=== PATIENT | female | born 1955 | race Caucasian/White ===

== ENCOUNTER 2020-01-24 17:42 | Outpatient (CLI) | payer BC, SELFPAY ==
--- NOTE | ~2020-01-24 | MM_ITS ---
EXAMINATION: MM screening [facility] BI w arvind HISTORY: Screening TECHNIQUE: Craniocaudal and mediolateral oblique 3-D tomosynthesis images were obtained and synthetic 2-D images were generated. CAD analysis was submitted and interpreted. COMPARISON: Comparison to multiple prior studies sequentially, with oldest reviewed study dated 09/2014. BREAST PARENCHYMAL COMPOSITION: There are scattered areas of fibroglandular density. FINDINGS: There is no evidence of suspicious mass, calcification, or architectural distortion to sugg est malignancy in either breast. There has been no suspicious interval change. IMPRESSION: 1. No mammographic evidence of malignancy. 2. Recommend routine screening mammography in one year. BI-RADS Category 1: Negative Reviewed, dictated and finalized at location A.
== END 2020-01-24 17:43 | disposition home or self-care (01) ==
PROVIDERS: Visit Provider Obstetrics & Gynecology
DX: Z12.31 Encounter for screening mammogram for malignant neoplasm of breast (principal)
CPT/HCPCS: 77063; 77067

== ENCOUNTER → 2022-01-22 12:21 | Outpatient (CLI) | payer BC, SELFPAY ==
--- NOTE | ~2022-01-22 | MM_ITS ---
EXAMINATION: MM screening [facility] BI w arvind HISTORY: Screening TECHNIQUE: Craniocaudal and mediolateral oblique 3-D tomosynthesis images were obtained and synthetic 2-D images were generated. CAD analysis was submitted and interpreted. COMPARISON: Comparison to multiple prior studies sequentially, with oldest reviewed study dated 09/2014. BREAST PARENCHYMAL COMPOSITION: There are scattered areas of fibroglandular density. FINDINGS: There is no evidence of suspicious mass, calcification, or architectural distortion to sugg est malignancy in either breast. There has been no suspicious interval change. IMPRESSION: 1. No mammographic evidence of malignancy. 2. Recommend routine screening mammography in one year. BI-RADS Category 1: Negative Reviewed, dictated and finalized at location A.
== END ==
PROVIDERS: PCP Nurse Practitioner; Visit Provider Nurse Practitioner
DX: Z12.31 Encounter for screening mammogram for malignant neoplasm of breast (principal)
CPT/HCPCS: 77063; 77067

== ENCOUNTER → 2022-03-09 08:02 | Outpatient (CLI) | payer BC, SELFPAY ==
--- NOTE | ~2022-03-09 | DEXA_ITS ---
Bone Density Report Name: ZAIDA LEVY Age: 67 Sex: Female Ethnicity: White Date of : 1955 Indication: postmenopausal; screening for osteoporosis; prior fracture; hysterectomy; Referring Provider: Faizan, Sara Study: Bone densitometry was performed. Exam Date: March 09, 2022 Accession number: [id number] Bone Density: Region BMD T-score Z-score Classification AP Spine (L1-L4) 0.969 -0.7 1.1 Normal Femoral Neck (Left) 0.767 -0.7 0.8 Normal Total Hip (Left) 0.889 -0.4 0.8 Normal Femoral Neck (Right) 0.711 -1.2 0.3 Osteopenia Total Hip (Right) 0.829 -0.9 0.3 Normal Total Hip Mean 0.859 -0.7 0.6 Normal World Health Organization criteria for BMD impression classify patients as: Normal (T-score at or above -1.0), Osteopenia (T-score between -1.0 and -2.5), or Osteoporosis (T-score at or below -2.5). 10-year Fracture Risk(1): Major Osteoporotic Fracture 14% Hip Fracture 1.2% Reported Risk Factors: [place] (), Neck BMD=0.711, BMI=27.1, previous fracture (1) FRAX(R) Version 3.08. Fracture probability calculated for an untreated patient. Fracture probability may be lower if the patient has received treatment. Previous Exams: Region Exam Age BMD T-score BMD Change BMD Change Date g/cm2 vs Baseline vs Previous AP Spine(L1-L4) 03/09/2022 67 0.969 -0.7 0.020 0.020 11/03/2018 63 0.949 -0.9 Total Hip(Left) 03/09/2022 67 0.889 -0.4 -0.011 -0.011 11/03/2018 63 0.900 -0.3 Total Hip(Right) 03/09/2022 67 0.829 -0.9 0.001 0.001 11/03/2018 63 0.828 -0.9 *Denotes significance at 95% confidence level, LSC for AP Spine = 0.022 g/cm2, LSC for Total Hip = 0.027 g/cm2 Clinical Information Provided by Patient: Has had a low trauma fracture Has used the following medications: Vitamin D, Calcium, MTV Has the following medical conditions: Hysterectomy Patient maximum height was 66.0 Menopause Age: 48 Does not regularly consume dairy products Drinks caffeinated beverages Onset of menses at age 12 Number of children 0 Impression: The patient has low bone mass, based on the Right Femoral Neck T-score. The patient has an estimated ten-year risk of hip fracture of 1.2% and an estimated ten-year risk of major fracture of 14%, based on the WHO FRAX algorithm. The patient has risk factors, including: previous fracture. No significant bone loss was observed
== END ==
PROVIDERS: PCP Nurse Practitioner; Visit Provider Nurse Practitioner
DX: Z13.820 Encounter for screening for osteoporosis (principal); M85.851 Other specified disorders of bone density and structure, right thigh
CPT/HCPCS: 77080

== ENCOUNTER 2022-07-28 08:34 | Outpatient (CLI) | payer BC, SELFPAY ==
--- NOTE | ~2022-07-28 | XR_ITS ---
Clinical Indication: Pneumonia PA and lateral views of the chest: Comparison: None Findings: The lungs are clear, without evidence of focal consolidation or pleural effusion. Cardiome diastinal silhouette is within normal limits. Bones and soft tissues are unremarkable. Impression: Normal chest. Reviewed, dictated and finalized at [facility]. LE APPLICATION DEVELOPMENT LEAD Impression: Normal chest.
== END 2022-07-28 08:35 ==
LOC: MICIMG 08:37
DX: J18.9 Pneumonia, unspecified organism (principal)
CPT/HCPCS: 71046

== ENCOUNTER → 2023-03-15 14:01 | Outpatient (CLI) | payer BC, SELFPAY ==
--- NOTE | ~2023-03-15 | MM_ITS ---
EXAMINATION: MM screening [facility] BI w arvind HISTORY: Screening mammogram TECHNIQUE: Craniocaudal and mediolateral oblique 3-D tomosynthesis images were obtained and synthetic 2-D images were generated. CAD analysis was submitted and interpreted. COMPARISON: 01/22/2022, 2019 bilateral screening mammogram examinations BREAST PARENCHYMAL COMPOSITION: There are scattered areas of fibroglandular density. FINDINGS: There is no evidence of suspicious mass, calcification, or architectural distortion to sugg est malignancy in either breast. There has been no suspicious interval change. IMPRESSION: 1. No mammographic evidence of malignancy. 2. Recommend routine screening mammography in one year. BI-RADS Category 1: Negative Reviewed, dictated and finalized at location A.
== END ==
PROVIDERS: Visit Provider Nurse Practitioner
DX: Z12.31 Encounter for screening mammogram for malignant neoplasm of breast (principal)
CPT/HCPCS: 77063; 77067

== ENCOUNTER 2024-05-08 13:58 | Outpatient (CLI) | payer BC, SELFPAY ==
--- NOTE | ~2024-05-08 | MM_ITS ---
EXAMINATION: MM screening [facility] BI w arvind HISTORY: Screening mammogram TECHNIQUE: Craniocaudal and mediolateral oblique 3-D tomosynthesis images were obtained and synthetic 2-D images were generated. CAD analysis was submitted and interpreted. COMPARISON: 03/15/2023, 01/22/2022, 01/24/2020 BREAST PARENCHYMAL COMPOSITION:Not Dense. The breasts are almost entirely fatty FINDINGS: No suspicious mass, calcification, or architectural distortion are identified in either yajaira ast to suggest malignancy. There has been no suspicious interval change. IMPRESSION: No mammographic evidence of malignancy. Recommend routine screening mammography in one year. BI-RADS Category 1: Negative Reviewed, dictated and finalized at location . I/99
== END 2024-05-08 13:59 | disposition home or self-care (01) ==
LOC: MICIMG 14:00
PROVIDERS: Visit Provider Nurse Practitioner
DX: Z12.31 Encounter for screening mammogram for malignant neoplasm of breast (principal)
CPT/HCPCS: 77063; 77067

== ENCOUNTER 2024-11-02 17:25 | Emergency (ER) | payer BC, MEDICARE, SELFPAY ==
--- OUTSIDE RECORDS SUMMARY | 2024-11-02 17:29 | XMS_ITS | Clinical Summary ---
Author Organization [facility] Address [address] [place] [address] Phone Care Team Providers Care Molding Machine Tender Name Role Phone Mary Anne Stevens MD Primary Care Provider [phone] Allergies Active Allergy Reactions Criticality Noted Date Comments Neomycin Rash Low 08/01/2016 Medications calcium carbonate/tavon min D3 (CALTRATE 600 + D ORAL) Take 1 Tablet by mouth daily. Active MULTIVITAMIN ORAL Take 1 Tablet by mouth daily. Active estradioL (ESTRACE) 0.01% (0.1 mg/g) vaginal creamIndicatio ns:Atrophic vaginitis Insert 1 Gram vaginally see administration instructions. Use two times a week. 42.5 Gram 3 5 Active ergocalciferol (VITAMIN D2) 50,000 unit capsule Take 1 Capsule (50,000 Units) by mouth every 7 days. 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 06/30/2022 Encounters Date Type Department Care Team Description 09/05/2024 External Device Data [facility] ABSTRACTION Provider, Abstract 08/29/2024 External Device Data [facility] ABSTRACTION Provider, Abstract 08/28/2024 External Device Data [facility] ABSTRACTION Provider, Abstract 08/25/2024 External Device Data [facility] ABSTRACTION Provider, Abstract 08/25/2024 External Device Data [facility] ABSTRACTION Provider, Abstract 08/22/2024 External Device Data [facility] ABSTRACTION Provider, Abstract 08/22/2024 External Device Data [facility] ABSTRACTION Provider, Abstract 08/09/2024 1:17 PM DRAWING HAND - 08/09/2024 11:59 PM DRAWING HAND [facility] [address] [place] [address] Mary Anne Stevens MD Discharge Disposition: Home or Self Care 08/08/2024 External Device Data ST[facility] ABSTRACTION Provider, Abstract from Last 3 Months Immunizations Immunization Administration Dates Next Due (COMIRNATY)(12 YR UP) COVID- 19 VACCINE, MRNA, SPIKE PROTEIN, LNP, HUSAM(PF) 30 MCG/0.3 ML IM SUSP 03/27/2024 (PFIZER HUSAM)(5-11 YRS PRIMA RY SERIES) COVID-19 VACCINE - EMERGENCY USE AUTHORIZATION, MRNA, HUSAM(PF) 10 MCG/0.2 ML IM SUSP 04/01/2022,11/04/2021,03/24/2021 (PFIZER)(12 YR UP) COVID-19 VACCINE - EMERGENCY USE AUTHORIZATION, MRNA, [id number](PF) 30 MCG/0.3 ML IM SUSP 08/06/2020,07/13/2020 (PREVNAR 20)(6 WKS UP) PNEUM OCOCCAL CONJUGATE VACCINE 20-VALENT (PCV20), POLYSACCHARIDE [id number] CONJUGATE, ADJUVANT 0.5 ML (PF) IM 03/03/2022 (SHINGRIX)(50 YRS UP) ZOSTER VACCINE RECOMBINANT, 0.5 ML, IM 07/19/2024 Adacel Vaccine > 7 Yo IM 06/20/2016 INFLUENZA VACCINE INACTIVATE D ADJUV, (65 YR UP), 0.5ML (PF), IM 03/27/2024 Influenza Seasonal Unspecifi ed Formulation IM 03/03/2023,03/03/2022 Pneumococcal 7-valent conjugate vaccine IM 03/03 Zoster Vaccine Live SQ 08/24/2016 Family History Medical History Relation Name Comments Heart Disease Brother Benny Gonzalez Heart disease stents inserted in early 1999s. Heart Disease Father Hernando Gonzalez of heart disease in 2003 age 78. High Cholesterol Father Hernando Gonzalez No Known Problems Maternal Grandfather No Known Problems Maternal Grandmother Cancer Mother Rehana Gonzalez Pancreatic canc er. 1975 age 50 No Known Problems Paternal Grandfather No Known Problems Paternal Grandmother No Known Problems Sister Relation Name Status Comments Brother Benny Gonzalez Alive Father Hernando Gonzalez Maternal Grandfather Maternal Grandmother Mother Rehana Gonzalez Paternal Grandfather Paternal Grandmother Sister Alive Social History Tobacco Use Types Packs/Day Years Used Date Smoking Tobacco: Never Passive Smoke Exposure: Never Smokeless Tobacco: Never Tobacco Cessation:Counseling Given: No Alcohol Use Standard Drinks/Week Comments Yes 4 (1 standard drink = 0.6 oz pur e alcohol) Comments No Sex and Gender Information Value Date Recorded Sex Assigned at Not on file Legal Sex Female 8:47 AM DRAWING HAND Gender Identity Not on file Sexual Orientation Not on file Last Filed Vital Signs Vital Sign Reading Time Taken Comments Blood Pressure 122/76 07/19/2024 8:12 AM DRAWING HAND Pulse 79 07/19/2024 8:12 AM DRAWING HAND Temperature 36.2 C (97.1 F) 07/19/2024 8:12 AM DRAWING HAND Respiratory Rate 18 07/19/2024 8:12 AM DRAWING HAND Oxygen Saturation 97% 07/19/2024 8:12 AM DRAWING HAND Inhaled Oxygen Concentration - - Weight 81.2 kg (179 lb) 07/19/2024 8:12 AM DRAWING HAND Height 167.6 cm (5' 6 ) 07/19/2024 8:12 AM DRAWING HAND Body Mass Index 28.89 07/19/2024 8:12 AM DRAWING HAND Plan of Treatment Upcoming Encounters Date Type Department Care Team (Late st Contact Info) Description 07/30/2025 8:00 AM DRAWING HAND Office Visit [facility] Primary Care [facility] [address] [place] [address] Mary Anne Stevens MD [address] [place] [address] Health Maintenance Due Date Last Done Comments Pre-Diabetes and Diabetes Screening 1955 COLORECTAL SCREENING 2001 FIT-DNA Q 3 years 2001 Flex Sig/CT Colonography Q 5 years 2001 Colorectal Cancer Screening 05/01/2019 FIT/FOBT Q 1 year 05/01/2019 05/01/2018 BREAST CANCER SCREENING 03/15/2024 03/15/2023 ZOSTER VACCINE (3 of 3) 09/13/2024 07/19/2024, 08/24 COVID-19 Vaccine (4 - 2023-2 5 season) 2024 03/27/2024, 04/01/2022, 11/04/2021, Additional history exists DTAP/TDAP/TD VACCINES (2 - T d or Tdap) 06/20/2026 06/20/2016 OSTEOPOROSIS SCREENING 03/09/2027 03/09/2022 RSV VACCINE (60+ or ) (1 - 1-dose 75+ series) 2031 PNEUMOCOCCAL VACCINE 50+ YEARS Completed 03/03/2022 , 03/03/2022 INFLUENZA VACCINE Completed 03/27/2024, , 03/03/2022 Preventative Visit- Commercial Completed 0 07/19/2024, 07/18/2023, 06/30/2022 Procedures Procedure Name Priority Date/Time Associated Diagnosis Comments ECHO STRESS TEST EXERCISE Routine 08/09/2024 2:10 PM DRAWING HAND Shortness of breath MAMMO SCRN TO DIAG BILAT Routine 03/15/2023 1:55 PM CDT XR DEXA BONE DENSITY AXIAL 1 OR MORE SITES Routine 03/09/2022 OCCULT BLOOD IMMUNOASSAY, COLORECTAL SCREEN Routine 05/01/2018 12:37 PM DRAWING HAND from Last 3 Months or Most Recently Relevant to Health Maintenance Results * ECHO STRESS TEST EXERCISE (08/09/2024 2:10 PM DRAWING HAND) EJECTION FRACTION EF: INTERFACE SYSTEM 08/09/2024 1:42 PM DRAWING HAND Narrative INTERFACE SYSTEM - 08/09/2024 2:23 PM DRAWING HAND Stress Echocardiogram Can Protocol Patient: Luda Jarvis Study ID: [id number] Gender: Louis : 1955 Age: 69 Race: TRACY Height 167.6cm Study Date: 08/09/2024 Weight: 81.2kg Access. #: [id number] BP: 108 / 82 *Referring Physician:Mary Anne Diaz Nancy P *Ordering Physician:Mary Anne [employer] Assistant Manager:Tatiana Echeverria [facility] lawn service supervisor: Nurse: MICH/YARELIS Indications: Dyspnea. History: PMH: HLD. FH of CAD. STUDY CONCLUSIONS: SUMMARY: - Procedure narrative: A transthoracic stress echocardiogram was performed. Image quality was adequate. Images were captured at baseline and peak exercise. - Stress data: Functional capacity is normal. - Staged echo conclusions: There was no echocardiographic evidence for stress-induced ischemia. - Baseline: LV global systolic function is normal. - Mild aortic regurgitation and mild mitral regurgitation present. Impressions: Normal Stress Echocardiogram . Cardiac Anatomy: AORTIC VALVE: The mean systolic gradient is 3mm Hg. The peak systolic gradient is 7mm Hg. The LVOT to aortic valve VTI ratio is 0.72. The valve area is 2.5cm^2. The ratio of LVOT to aortic valve peak velocity is 0.61. Stress protocol: - Baseline HR: 89bpm BP: 108/82 - Stage 1 HR: 118bpm BP: 126/64 - Stage 2 HR: 142bpm BP: 138/72 - Recovery HR: 96bpm BP: 123/62 Stress results: Maximal heart rate during stress was 142bpm (93% of maximal predicted heart rate). The maximal predicted heart rate was 152bpm. The target heart rate was 129bpm. The target heart rate was achieved. The heart rate response to stress is normal. There is a normal resting blood pressure with an appropriate response to stress. The rate-pressure product for the peak heart rate and blood pressure was 23881vr Hg/min. Functional capacity is normal. Treadmill exercise testing was performed using the Can protocol. The patient exercised for 6 min, to protocol stage 2, to a maximal work rate of 7mets. Exercise was terminated achievement of target heart rate and mild dyspnea. The patient was positioned for image acquisition and recovery monitoring. Baseline: Left ventricle: Cavity size is normal. Systolic function is normal. Normal wall motion; no regional wall motion abnormalities. Peak stress: Left ventricle: Cavity size is reduced. Systolic function is augmented. Normal wall motion; no regional wall motion abnormalities. Stress echo results: There was no echocardiographic evidence for stress-induced ischemia. Measurements Left ventricle Value Ref EDV, 2-p (N) 58 ml 46 - 106 ESV, 2-p (N) 22 ml 14 - 42 EF, 2-p (N) 62 % 54 - 74 SV, 2-p 36 ml -------- SV/bsa, 2-p 18.8 ml/m^2 -------- LVOT Value Ref Diam, S 2.1 cm -------- Area 3.5 cm^2 -------- Peak valdemar, S 0.81 m/sec -------- VTI, S 19.8 cm -------- Aortic valve Value Ref Peak v, S 1.3 m/sec -------- Mean v, S 0.8 m/sec -------- VTI, S 27.4 cm -------- Mean grad, S 3 mm Hg -------- Peak grad, S 7 mm Hg -------- LVOT/AV, VTI ratio 0.72 -------- RAJI, VTI 2.5 cm^2 -------- RAJI/bsa, VTI 1.31 cm^2/m^2 -------- LVOT/AV, Vpeak ratio 0.61 -------- RAJI, Vmax 2.1 cm^2 -------- RAJI/bsa, Vmax 1.1 cm^2/m^2 -------- AR PHT 515 ms -------- Legend: (L) and (H) godwin values outside specified reference range. (N) maya values inside specified reference range. Procedure data: [facility] Consent: The risks, benefits, and alternatives to the procedure were explained to the patient and informed consent was obtained. Procedure information: The patient arrived at the laboratory. A baseline ECG was recorded. Surface ECG leads and automatic cuff blood pressure measurements were monitored. A transthoracic stress echocardiogram was performed. Image quality was adequate. Images were captured at baseline and peak exercise. Study completion: There were no complications. Can protocol. Stress echocardiogram. Birthdate: Patient birthdate: 1955. Age: Patient is 69year(s) old. Sex: gender: female. Height: 167.6cm. 66in. Weight: 81.2kg. 179lb. Body mass index: 28.9kg/m^2. Body surface area: 1.91m^2. Blood pressure: 108/82 Patient status: Outpatient. Study date: Study date: 08/09/2024. Study time: 01:42 PM. Prepared and Electronically Authenticated Selvin Moran [id number] Procedure Note Selvin Moran MD - 08/09/2024 Stress Echocardiogram Can Protocol Patient: Luda Jarvis Study ID: [id number] Gender: F : 1955 Age: 69 Race: CAU Height 167.6cm Study Date: 08/09/2024 Weight: 81.2kg Access. #: [id number] BP: 108 / 82 *Referring Physician:Mary Anne Diaz Nancy P *Ordering Physician:Mary Anne [employer] Assistant Manager:Tatiana Echeverria [facility] lawn service supervisor: Nurse: /KB Indications: Dyspnea. History: PMH: HLD. FH of CAD. STUDY CONCLUSIONS: SUMMARY: - Procedure narrative: A transthoracic stress echocardiogram wasperformed. Image quality was adequate. Images were captured at baseline and peak exercise. - Stress data: Functional capacity is normal. - Staged echo conclusions: There was no echocardiographic evidence for stress-induced ischemia. - Baseline: LV global systolic function is normal. - Mild aortic regurgitation and mild mitral regurgitation present. Impressions: Normal Stress Echocardiogram . Cardiac Anatomy: AORTIC VALVE: The mean systolic gradient is 3mm Hg. The peak systolic gradient is 7mm Hg. The LVOT to aortic valve VTI ratio is 0.72. The valvearea is 2.5cm^2. The ratio of LVOT to aortic valve peak velocity is 0.61. Stress protocol: - Baseline HR: 89bpm BP: 108/82 - Stage 1 HR: 118bpm BP: 126/64 - Stage 2 HR: 142bpm BP: 138/72 - Recovery HR: 96bpm BP: 123/62 Stress results: Maximal heart rate during stress was 142bpm (93% ofmaximal predicted heart rate). The maximal predicted heart rate was 152bpm. Thetarget heart rate was 129bpm. The target heart rate was achieved. The heartrate response to stress is normal. There is a normal resting blood pressurewith an appropriate response to stress. The rate-pressure product for the peakheart rate and blood pressure was 98040xi Hg/min. Functional capacity isnormal. Treadmill exercise testing was performed using the Can protocol. Thepatient exercised for 6 min, to protocol stage 2, to a maximal work rate [id number]. Exercise was terminated achievement of target heart rate and mild dyspnea.The patient was positioned for image acquisition and recovery monitoring. Baseline: Left ventricle: Cavity size is normal. Systolic function is normal.Normal wall motion; no regional wall motion abnormalities. Peak stress: Left ventricle: Cavity size is reduced. Systolic function is augmented. Normal wall motion; no regional wall motion abnormalities. Stress echo results: There was no echocardiographic evidence for stress-induced ischemia. Measurements Left ventricle Value Ref EDV, 2-p (N) 58 ml 46 - 106 ESV, 2-p (N) 22 ml 14 - 42 EF, 2-p (N) 62 % 54 - 74 SV, 2-p 36 ml -------- SV/bsa, 2-p 18.8 ml/m^2 -------- LVOT Value Ref Diam, S 2.1 cm -------- Area 3.5 cm^2 -------- Peak valdemar, S 0.81 m/sec -------- VTI, S 19.8 cm -------- Aortic valve Value Ref Peak v, S 1.3 m/sec -------- Mean v, S 0.8 m/sec -------- VTI, S 27.4 cm -------- Mean grad, S 3 mm Hg -------- Peak grad, S 7 mm Hg -------- LVOT/AV, VTI ratio 0.72 -------- RAJI, VTI 2.5 cm^2 -------- RAJI/bsa, VTI 1.31 cm^2/m^2 -------- LVOT/AV, Vpeak ratio 0.61 -------- RAJI, Vmax 2.1 cm^2 -------- RAJI/bsa, Vmax 1.1 cm^2/m^2 -------- AR PHT 515 ms -------- Legend: (L) and (H) godwin values outside specified reference range. (N) maya values inside specified reference range. Procedure data: [facility] Consent: The risks, benefits, and alternatives to the procedure were explained to the patient and informed consent wasobtained. Procedure information: The patient arrived at the laboratory. A baselineECG was recorded. Surface ECG leads and automatic cuff blood pressuremeasurements were monitored. A transthoracic stress echocardiogram was performed.Image quality was adequate. Images were captured at baseline and peakexercise. Study completion: There were no complications. Can protocol. Stress echocardiogram. Birthdate: Patient birthdate: 1955. Age: Patient is 69year(s) old. Sex: gender: female. Height:167.6cm. 66in. Weight: 81.2kg. 179lb. Body mass index: 28.9kg/m^2. Bodysurface area: 1.91m^2. Blood pressure: 108/82 Patient status:Outpatient. Study date: Study date: 08/09/2024. Study time: 01:42 PM. Preparedand Electronically Authenticated Selvin Moran [id number] us Mary Anne Stevens MD US ORDERABLES Final Result Performing Organization Address City/[facility] Co de Phone Number INTERFACE SYSTEM Refer to clinic/hospital department * MAMMO SCRN TO ISAIASHussain CAOAT (03/15/2023 1:55 PM CDT) Anatomical Region Laterality Modality Breast Mammography us Abstract Provider MAMMO ORDERABLES Edited Result - Final * XR DEXA BONE DENSITY AXIAL 1 OR MORE SITES (03/09/2022) Anatomical Region Laterality Modality Other us Abstract Provider DIAGNOSTIC IMAGING ORDERABLES Final Result * OCCULT BLOOD IMMUNOASSAY, COLORECTAL SCREEN (05/01/2018 12:37 PM DRAWING HAND) Stool STOOL SPECIMEN / Unknown us Abstract Provider BODY FLUIDS AND STOOLS Edited Result - Final Performing Organization Address City/State/[facility] Co de Phone Number [facility]# [id number] Braina ROSEGREGORIO CARMEN [place] [id number] from Last 3 Months or Most Recently Relevant to Health Maintenance Insurance [facility] Archiver's Care Teams Molding Machine Tender Relationship Specialty Start Date End Date Mary Anne Stevens MD [address] [place] [address] PCP - General Internal Medicine 06/30/22
[2024-11-02 17:34] VITALS: BP 111/69; PULSE 93; RESP 16; TEMP 36.8; O2SAT 97
--- NOTE | 2024-11-02 18:02 | ED.GENADULT ---
HPI - General Adult General Chief complaint: Wound/Laceration <Chen Martínez October, PROGRAMMING SPECIALIST - Last Filed: 11/02/24 18:05> Stated complaint: laceration to palm of R. hand <Chen Martínez October, PROGRAMMING SPECIALIST - Last Filed: 11/02/24 18:05> Time Seen by Provider: 11/02/24 18:02 <Chen Martínez October, PROGRAMMING SPECIALIST - Last Filed: 11/02/24 18:05> Focused HPI: Luda Jarvis is a 69 y/o female who presents with cutting her right hand on a can at about 1645, she thinks her last tdap might of been 2017 but not sure. there is a large linear laceration across right palmar aspect GENERAL: Well-appearing, well-nourished, and in no acute distress. HEAD: Normocephalic, atraumatic. CHEST: Clear to auscultation. No respiratory distress. HEART: Regular rate and rhythm. NEURO: Alert and oriented x3. Patient screened in triage and initial orders placed. Additional care and disposition to be based upon diagnostic testing and treatment. <Chen Martínez October, PROGRAMMING SPECIALIST - Last Filed: 11/02/24 18:05> History of Present Illness HPI narrative: Agree with HPI <Bethel Guy MD - Last Filed: 11/02/24 20:41> Related Data Allergies/adverse reactions: Allergies Allergy/AdvReac Type Severity Reaction Status Date / Time neomycin Allergy Intermediate Rash Verified 11/02/24 20:08 <Chen Martínez October, PROGRAMMING SPECIALIST - Last Filed: 11/02/24 18:05> Review of Systems Constitutional: Constitutional: Reports no additional constitutional complaints <Bethel Guy MD - Last Filed: 11/02/24 20:41> Musculoskeletal: Musculoskeletal: Reports no additional musculoskeletal complaints <Bethel Guy MD - Last Filed: 11/02/24 20:41> Integumentary/Breasts: Skin/Breast: Reports system reviewed and no additional complaints, except as docu <Bethel Guy MD - Last Filed: 11/02/24 20:41> Neurologic: Reports system reviewed and no additional complaints, except as documented <Bethel Guy MD - Last Filed: 11/02/24 20:41> PMFSH Past Medical History Medical History: Medical History (Updated 11/02/24 @ 20:41 by Bethel Guy MD) Healthy female adult <Chen Izaguirre APRN - Last Filed: 11/02/24 18:05> Exam Narrative: GENERAL: Well-appearing, well-nourished, and in no acute distress. HEAD: Normocephalic, atraumatic. ENT: Mucous membranes moist. EXTREMITIES: Normal range of motion. No edema. Right hand neurovascular intact. SKIN: Warm, dry, no rash. 1.5 cm laceration palm of the right hand at the 1st MCP without exposure of flexor tendon. NEURO: Alert and oriented x3. PSYCH: Normal mood and affect. <Bethel Guy MD - Last Filed: 11/02/24 20:41> Course Course Emergency Course: Tetanus updated. Wound repaired. Discharge home. <Bethel Guy MD - Last Filed: 11/02/24 20:41> Vital Signs Vital signs: Vital Signs Temperature 98.2 F 11/02/24 17:34 Pulse Rate 93 11/02/24 17:34 Respiratory Rate 16 11/02/24 17:34 Blood Pressure 111/69 11/02/24 17:34 Pulse Oximetry 97 11/02/24 17:34 Oxygen Delivery Room Air 11/02/24 17:34 Temperature 98.2 F 11/02/24 17:34 Pulse Rate 93 11/02/24 17:34 Respiratory Rate 16 11/02/24 17:34 Blood Pressure 111/69 11/02/24 17:34 Pulse Oximetry 97 11/02/24 17:34 Oxygen Delivery Room Air 11/02/24 17:34 <Chen Izaguirre PROGRAMMING SPECIALIST - Last Filed: 11/02/24 18:05> Vital Signs Temperature 98.2 F 11/02/24 17:34 Pulse Rate 93 11/02/24 17:34 Respiratory Rate 16 11/02/24 17:34 Blood Pressure 111/69 11/02/24 17:34 Pulse Oximetry 97 11/02/24 17:34 Oxygen Delivery Room Air 11/02/24 17:34 Temperature 98.2 F 11/02/24 17:34 Pulse Rate 93 11/02/24 17:34 Respiratory Rate 16 11/02/24 17:34 Blood Pressure 111/69 11/02/24 17:34 Pulse Oximetry 97 11/02/24 17:34 Oxygen Delivery Room Air 11/02/24 17:34 <Bethel Guy MD - Last Filed: 11/02/24 20:41> Procedures Laceration Laceration 1: Date: 11/02/24 <Bethel Guy MD - Last Filed: 11/02/24 20:41> Time: 20:40 <Bethel Guy MD - Last Filed: 11/02/24 20:41> Side (If applicable): right <Bethel Guy MD - Last Filed: 11/02/24 20:41> Size (cm): 1.5 <Bethel Guy MD - Last Filed: 11/02/24 20:41> Description: linear <Bethel Guy MD - Last Filed: 11/02/24 20:41> Depth: simple, single layer <Bethel Guy MD - Last Filed: 11/02/24 20:41> Local Anesthetic: lidocaine 1% and with epi <Bethel Guy MD - Last Filed: 11/02/24 20:41> Amount of anesthesia used (mL): 3 <Bethel Guy MD - Last Filed: 11/02/24 20:41> Pre-repair: wound explored and irrigated <Bethel Guy MD - Last Filed: 11/02/24 20:41> ====== Skin Level ======: Skin layer closed with: vicryl <Bethel Guy MD - Last Filed: 11/02/24 20:41> Size (cm): 4-0 <Bethel Guy MD - Last Filed: 11/02/24 20:41> Number of sutures: 3 <Bethel Guy MD - Last Filed: 11/02/24 20:41> ====== Subcutaneous Layer ======: ====== Muscle Layer ======: ====== Tendon Layer ======: Medical Decision Making Vital Signs Vital Signs: Vital Signs Temperature 98.2 F 11/02/24 17:34 Pulse Rate 93 11/02/24 17:34 Respiratory Rate 16 11/02/24 17:34 Blood Pressure 111/69 11/02/24 17:34 Pulse Oximetry 97 11/02/24 17:34 Oxygen Delivery Room Air 11/02/24 17:34 Temperature 98.2 F 11/02/24 17:34 Pulse Rate 93 11/02/24 17:34 Respiratory Rate 16 11/02/24 17:34 Blood Pressure 111/69 11/02/24 17:34 Pulse Oximetry 97 11/02/24 17:34 Oxygen Delivery Room Air 11/02/24 17:34 <Chen Izaguirre PROGRAMMING SPECIALIST - Last Filed: 11/02/24 18:05> Vital Signs Temperature 98.2 F 11/02/24 17:34 Pulse Rate 93 11/02/24 17:34 Respiratory Rate 16 11/02/24 17:34 Blood Pressure 111/69 11/02/24 17:34 Pulse Oximetry 97 11/02/24 17:34 Oxygen Delivery Room Air 11/02/24 17:34 Temperature 98.2 F 11/02/24 17:34 Pulse Rate 93 11/02/24 17:34 Respiratory Rate 16 11/02/24 17:34 Blood Pressure 111/69 11/02/24 17:34 Pulse Oximetry 97 11/02/24 17:34 Oxygen Delivery Room Air 11/02/24 17:34 <Bethel Guy MD - Last Filed: 11/02/24 20:41> Discharge Plan Discharge Clinical Impression: Laceration <Chen Izaguirre PROGRAMMING SPECIALIST - Last Filed: 11/02/24 18:05> Patient Disposition: Home <Chen Izaguirre PROGRAMMING SPECIALIST - Last Filed: 11/02/24 18:05> Condition: Stable <Chen Izaguirre PROGRAMMING SPECIALIST - Last Filed: 11/02/24 18:05> Instructions: Care For Your Stitches (ED), Laceration (ED) <Chen Izaguirre PROGRAMMING SPECIALIST - Last Filed: 11/02/24 18:05> Additional Instructions: Remove your sutures in 14 days. Return ER if her hand is red and hot, your wound is draining pus, or you have additional concerns. <Chen Izaguirre PROGRAMMING SPECIALIST - Last Filed: 11/02/24 18:05> Patient Language: Luxembourgish <Chen Izaguirre APRN - Last Filed: 11/02/24 18:05> Follow-up/Referrals: PHYSICIAN NOT ON STAFF,NONSTAFF [Primary Care Provider] - <Chen Izaguirre APRN - Last Filed: 11/02/24 18:05>
[2024-11-02] MEDS: TETANUS,DIPHTHERIA,AC PERTUSSIS ADULT (0.5 ML) BOOSTRIX IM (20:09)
--- OUTSIDE RECORDS SUMMARY | 2024-11-02 20:49 | XMS_ITS | Clinical Summary ---
Author Organization [facility] Address [address] [place] [address] Phone Care Team Providers Care Gear Repairer Name Role Phone Mary Anne Stevens MD Primary Care Provider [phone] Allergies Active Allergy Reactions Criticality Noted Date [...] STL ABSTRACTION Provider, Abstract 08/09/2024 1:17 PM VEHICLE UPHOLSTERER - 08/09/2024 11:59 PM VEHICLE UPHOLSTERER Hospital Encounter [facility] [address] [place] [address] Mary Anne Stevens MD Discharge [...] COVID-19 VACCINE - EMERGENCY USE AUTHORIZATION, MRNA, [id number](PF) 30 MCG/0.3 ML IM SUSP 08/06/2020,07/13/2020 (PREVNAR 20)(6 WKS UP) PNEUM OCOCCAL CONJUGATE VACCINE 20-VALENT (PCV20), POLYSACCHARIDE [id number] CONJUGATE, ADJUVANT 0.5 ML (PF) IM 03/03/2022 [...] Hernando Gonzalez Maternal Grandfather Maternal Grandmother Mother Rehaan Gonzalez Paternal Grandfather Paternal Grandmother Sister Alive [...] on file Legal Sex Female 8:47 AM VEHICLE UPHOLSTERER Gender Identity Not on file Sexual Orientation Not on file Last Filed Vital Signs Vital Sign Reading Time Taken Comments Blood Pressure 122/76 07/19/2024 8:12 AM VEHICLE UPHOLSTERER Pulse 79 07/19/2024 8:12 AM VEHICLE UPHOLSTERER Temperature 36.2 C (97.1 F) 07/19/2024 8:12 AM VEHICLE UPHOLSTERER Respiratory Rate 18 07/19/2024 8:12 AM VEHICLE UPHOLSTERER Oxygen Saturation 97% 07/19/2024 8:12 AM VEHICLE UPHOLSTERER Inhaled Oxygen Concentration - - Weight 81.2 kg (179 lb) 07/19/2024 8:12 AM VEHICLE UPHOLSTERER Height 167.6 cm (5' 6 ) 07/19/2024 8:12 AM VEHICLE UPHOLSTERER Body Mass Index 28.89 07/19/2024 8:12 AM VEHICLE UPHOLSTERER Plan of Treatment Upcoming Encounters Date Type Department Care Team (Late st Contact Info) Description 07/30/2025 8:00 AM VEHICLE UPHOLSTERER Office [facility] Primary Care [facility] [address] [place] [address] Mary Anne Stevens MD [address] [place] [address] Health Maintenance Due Date Last [...] STRESS TEST EXERCISE Routine 08/09/2024 2:10 PM VEHICLE UPHOLSTERER Shortness of breath MAMMO SCRN TO DIAG BILAT Routine 03/15/2023 1:55 PM CDT XR DEXA BONE DENSITY AXIAL 1 OR MORE SITES Routine 03/09/2022 OCCULT BLOOD IMMUNOASSAY, COLORECTAL SCREEN Routine 05/01/2018 12:37 PM VEHICLE UPHOLSTERER from Last 3 Months or Most Recently Relevant to Health Maintenance Results * ECHO STRESS TEST EXERCISE (08/09/2024 2:10 PM VEHICLE UPHOLSTERER) EJECTION FRACTION EF: INTERFACE SYSTEM 08/09/2024 1:42 PM VEHICLE UPHOLSTERER Narrative INTERFACE SYSTEM - 08/09/2024 2:23 PM VEHICLE UPHOLSTERER Stress Echocardiogram Can Protocol Patient: Luda Jarvis Study ID: [id number] Gender: Louis : 1955 Age: 69 Race: TRACY Height 167.6cm Study Date: 08/09/2024 Weight: 81.2kg Access. #: [id number] BP: 108 / 82 *Referring Physician:Mary Anne Diaz Nancy P *Ordering Physician:Mary Anne DiazTrailhead Construction Worker:Tatiana Echeverria [facility] health sciences manager: Nurse: MICH/YARELIS Indications: Dyspnea. History: PMH: HLD. [...] peak heart rate and blood pressure was 36609ko Hg/min. Functional capacity is normal. Treadmill exercise [...] values inside specified reference range. Procedure data: [facility] Consent: The risks, benefits, and alternatives [...] PM. Prepared and Electronically Authenticated Selvin Moran [id number] Procedure Note Selvin Moran MD - 08/09/2024 Stress Echocardiogram Can Protocol Patient: Luda Jarvsi Study ID: [id number] Gender: F : 1955 Age: 69 Race: CAU Height 167.6cm Study Date: 08/09/2024 Weight: 81.2kg Access. #: [id number] BP: 108 / 82 *Referring Physician:Mary Anne Diaz Nancy P *Ordering Physician:Mary Anne DiazTrailhead Construction Worker:Tatiana Echeverria [facility] health sciences manager: Nurse: /KB Indications: Dyspnea. History: PMH: HLD. [...] the peakheart rate and blood pressure was 79416ar Hg/min. Functional capacity isnormal. Treadmill exercise testing was performed using the Can protocol. Thepatient exercised for 6 min, to protocol stage 2, to a maximal work rate [id number]. Exercise was terminated achievement of target heart [...] values inside specified reference range. Procedure data: [facility] Consent: The risks, benefits, and alternatives [...] 01:42 PM. Preparedand Electronically Authenticated Selvin Moran [id number] us Mary Anne Stevens MD US ORDERABLES Final Result Performing Organization Address City/[facility] Co de Phone Number INTERFACE SYSTEM Refer [...] BLOOD IMMUNOASSAY, COLORECTAL SCREEN (05/01/2018 12:37 PM VEHICLE UPHOLSTERER) Stool STOOL SPECIMEN / Unknown us Abstract Provider BODY FLUIDS AND STOOLS Edited Result - Final Performing Organization Address City/State/[facility] Co de Phone Number [facility]# [id number] [address] [place] [address] from Last 3 Months or Most Recently Relevant to Health Maintenance Insurance [facility] [employer] Care Teams Gear Repairer Relationship Specialty Start Date End Date Mary Anne Stevens MD [address] [place] [address] PCP - General Internal Medicine 06/30/22
== END 2024-11-02 21:10 | disposition home or self-care (01) ==
LOC: ANHED 20:47
PROVIDERS: Emergency Provider Emergency Medicine
DX: S61.411A Laceration without foreign body of right hand, initial encounter (principal); W26.8XXA Contact with other sharp object(s), not elsewhere classified, initial encounter; Z23 Encounter for immunization
CPT/HCPCS: 12001; 90471; 90715; 99282; J2004

== ENCOUNTER 2025-02-05 17:51 | Emergency (ER) | payer BC, MEDICARE, SELFPAY ==
--- OUTSIDE RECORDS SUMMARY | 2025-02-05 17:57 | XMS_ITS | Clinical Summary ---
Author Organization [facility] Address [address] [place] [address] Phone Care Team Providers Care Hat Body Inspector Name Role Phone Mary Anne Stevens MD Primary Care Provider [phone] Allergies Active Allergy Reactions Criticality Noted Date [...] Encounters Date Type Department Care Team Description 01/22/2025 External Device Data STL ABSTRACTION Provider, Abstract 01/02/2025 External Device Data STL ABSTRACTION Provider, Abstract 01/02/2025 External Device Data STL ABSTRACTION Provider, Abstract 12/11/2024 External Device Data STL ABSTRACTION Provider, Abstract 11/19/2024 8:05 AM CDT Anesthesia Event [facility] [address] [place] [address] Allie Mays MD Weber, Melinda S, CRNA 11/19/2024 8:00 AM CDT - 11/19/2024 8:30 AM CDT Surgery [facility] [address] [place] [address] Pedro Mckenzie MD COLONOSCOPY 11/19/2024 6:23 AM CDT - 11/19/2024 9:11 AM CDT Hospital Encounter [facility] [address] [place] [address] Pedro Mckenzie MD Special screening for malignant neoplasms, colon Discharge Disposition: Home or Self Care 11/19/2024 Results Follow-Up [facility] [place] [address] [place] [address] Mary Anne Stevens MD COLONOSCOPY REPORT 11/08/2024 External Device Data STL ABSTRACTION Provider, Abstract 11/07/2024 External Device Data STL ABSTRACTION Provider, Abstract [...] COVID-19 VACCINE - EMERGENCY USE AUTHORIZATION, MRNA, [id number](PF) 30 MCG/0.3 ML IM SUSP 08/06/2020,07/13/2020 (PREVNAR 20)(6 WKS UP) PNEUM OCOCCAL CONJUGATE VACCINE 20-VALENT (PCV20), POLYSACCHARIDE [id number] CONJUGATE, ADJUVANT 0.5 ML (PF) IM 03/03/2022 [...] on file Legal Sex Female 8:47 AM EFFERVESCENT SALTS COMPOUNDER Gender Identity Not on file Sexual Orientation Not on file Last Filed Vital Signs Vital Sign Reading Time Taken Comments Blood Pressure 115/74 11/19/2024 8:55 AM CDT Pulse 68 11/19/2024 8:55 AM CDT Temperature 36.2 C (97.2 F) 11/19/2024 8:27 AM CDT Simultaneous filing. User may not have seen previous data. Respiratory Rate 12 11/19/2024 8:55 AM CDT Oxygen Saturation 95% 11/19/2024 8:5 5 AM CDT Inhaled Oxygen Concentration - - Weight 80.7 kg (178 lb) 11/19/2024 7:08 AM CDT Height 167.6 cm (5' 6) 11/19/2024 7:15 AM CDT Body Mass Index 28.73 11/19/2024 7:08 AM CDT Plan of Treatment Upcoming Encounters Date Type Department Care Team (Late st Contact Info) Description 07/30/2025 8:00 AM EFFERVESCENT SALTS COMPOUNDER Office Visit [facility] Primary [facility] [address] [place] [address] Mary Anne Stevens MD [address] [place] [address] Health Maintenance Due Date Last Done Comments Pre-Diabetes and Diabetes Screening 1955 FIT/ DNA Q 3 YEARS (AUTO ORDER) 1974 FLEX SIG/CT COLONOGRAPHY Q 5 YEARS (AUTO ORDER) 1974 Traditional Medicare (ACO) A nnual Wellness Visit 1975 FIT-DNA Q 3 years 2001 Flex Sig/CT Colonography Q 5 years 2001 FIT/FOBT Q 1 YEAR (AUTO ORDER) 05/01/2019 05/01/2018 FIT/FOBT Q 1 year 05/01/2019 05/01/2018 BREAST CANCER SCREENING 03/15/2024 03/15/2023 ZOSTER VACCINE (3 of 3) 09/13/2024 07/19/2024, 08/24 COVID-19 Vaccine (2023-2 5 season) 2024 03/27/2024, 04/01/2022, 11/04/2021, Additional history exists INFLUENZA VACCINE (#1) 2025 , 03/03/2023, 03/03/2022 DTAP/TDAP/TD VACCINES (2 - T d or Tdap) 06/20/2026 06/20/2016 OSTEOPOROSIS SCREENING 03/09/2027 03/09/2022 RSV VACCINE (60+ or ) (1 - 1-dose 75+ series) 2031 COLORECTAL CANCER SCREENING (AUTO ORDER) 11/19/2034 11/19/2024, 11/19/2024 COLORECTAL SCREENING 11/19/2034 11/19/2024, 11/20/19 Colorectal Cancer Screening (AUTO ORDER) 11/19/2034 Colorectal Cancer Screening 11/19/2034 PNEUMOCOCCAL VACCINE 50+ YEARS Completed 03/03/2022 , 03/03/2022 Preventative Visit- Commercial Completed 0 07/19/2024, 07/18/2023, 06/30/2022 Procedures Procedure Name Priority Date/Time Associated Diagnosis Comments PROCEDURE PHOTOGRAPHS 11/23/2024 1:48 PM CDT COLONOSCOPY REPORT 11/19/2024 8: 25 AM CDT RI COLONOSCOPY FLX DX W/COLLJ SPEC WHEN PFRMD 11/19/2024 8:00 AM CDT Special screening for malignant neoplasms, colon Case Notes no wt loss med MAMMO SCRN TO DIAG BILAT Routine 03/15/2023 1:55 PM CDT XR DEXA BONE DENSITY AXIAL 1 OR MORE SITES Routine 03/09/2022 OCCULT BLOOD IMMUNOASSAY, COLORECTAL SCREEN Routine 05/01/2018 12:37 PM EFFERVESCENT SALTS COMPOUNDER from Last 3 Months or Most Recently Relevant to Health Maintenance Results * PROCEDURE PHOTOGRAPHS (11/23/2024 1:48 PM CDT) us Provider Scanning PROCEDURE/MINOR SURGICAL ORDER FREDRICK Final Result * COLONOSCOPY REPORT (11/19/2024 8:25 AM CDT) Narrative Procedure Note Pedro Mckenzie MD - 11/19/2024 8:25 AM CDT [facility] Endoscopy Patient Name: Luda Jarvis Procedure Date: 11/19/2024 Date of : 1955 Attending MD: Pedro Mckenzie MD, Procedure: Colonoscopy Indications: Screening for colorectal malignant neoplasm Providers: Pedro Mckenzie MD Referring MD: Mary Anne Stevens MD Medicines: Monitored Anesthesia Care Complications: No immediate complications. Procedure: Informed consent was obtained for the procedure, including moderate sedation after risks were discussed. Based on the pre-procedure assessment, including review of the patient's medical history, medications, allergies, and review of systems, the patient was deemed to be an appropriate candidate for sedation. A timeout was performed. Continuous ECG monitoring, pulse oximetry, blood pressure monitoring, and direct observation were performed. The Colonoscope was introduced through the anus and advanced to the cecum, identified by appendiceal orifice and ileocecal valve. The colonoscopy was performed without difficulty. The patient tolerated the procedure well. The quality of the bowel preparation was evaluated using the BBPS (Dolphin Bowel Preparation Scale) with scores of: Right Colon = 3, Transverse Colon = 3 and Left Colon = 3 (entire mucosa seen well with no residual staining, small fragments of stool or opaque liquid). The total BBPS score equals 9. Findings: The perianal and digital rectal examinations were normal. Multiple small-mouthed diverticula were found in the recto-sigmoid colon. Non-bleeding internal hemorrhoids were found during retroflexion. The hemorrhoids were small. Impression: - Diverticulosis in the recto-sigmoid colon. - Non-bleeding internal hemorrhoids. - No specimens collected. Recommendation: - Repeat colonoscopy in 10 years for screening purposes. Procedure Code(s): --- Professional --- G0121, Colorectal cancer screening; colonoscopy on individual not meeting criteria for high risk CPT copyright 2020 [employer]. All rights reserved. The codes documented in this report are preliminary and upon galley worker review may be revised to meet current compliance requirements. Pedro Mckenzie MD 11/19/2024 8:25:53 AM This report has been signed electronically. Number of Addenda: [id number] [place] [address] us Pedro Mckenzie MD GI PROCEDURE ORDERABLES Final Re sult * MAMMO SCRN TO DIAG BILAT (03/15/2023 1:55 PM CDT) Anatomical Region Laterality Modality Breast Mammography us Abstract Provider MAMMO ORDERABLES Edited Result - Final * XR DEXA BONE DENSITY AXIAL 1 OR MORE SITES (03/09/2022) Anatomical Region Laterality Modality Other us Abstract Provider DIAGNOSTIC IMAGING ORDERABLES Final Result * OCCULT BLOOD IMMUNOASSAY, COLORECTAL SCREEN (05/01/2018 12:37 PM EFFERVESCENT SALTS COMPOUNDER) Stool STOOL SPECIMEN / Unknown us Abstract Provider BODY FLUIDS AND STOOLS Edited Result - Final [facility]# [id number] [address] [place] [address] from Last 3 Months or Most Recently Relevant to Health Maintenance [facility] PART A AND B [employer] Member Subscriber Plan / Payer (Ef fective 2021-Present) Name:Luda Jarvis Relation to Subscriber:Self Name:Luda Jarvis Payer ID:[id number] (NAIC) Type:Blue Cross Address: [facility] [address] [place] [id number] Care Teams Hat Body Inspector Relationship Specialty Start Date End Date Mary Anne Stevens MD [address] [place] [id number] PCP - General Internal Medicine 06/30/22
[2025-02-05 18:00] VITALS: BP 121/76; PULSE 88; RESP 18; TEMP 36.3; O2SAT 99
--- NOTE | 2025-02-05 19:45 | ED.SKABFB ---
HPI - Skin/Abscess/Foreign Bdy General Chief complaint: Skin/Abscess/Foreign Body Stated complaint: Insect Bite Time Seen by Provider: 02/05/25 18:05 Source: patient and RN notes reviewed Mode of arrival: ambulatory Limitations: no limitations History of Present Illness HPI narrative: 69-year-old female presents Express Care complaining of wasp sting to right elbow. Patient says she was stung last night. Patient has been using cold compresses and took Benadryl yesterday hand continues to have worsening redness, swelling and itchiness. Patient denies any breathing problems, wheezing, nausea vomiting, swelling to the lips, face, throat, or any other symptoms. Patient denies any significant past medical history. Related Data Allergies Allergy/AdvReac Type Severity Reaction Status Date / Time neomycin Allergy Intermediate Rash Verified 02/05/25 18:13 Review of Systems Review of Systems: CONSTITUTIONAL: Denies fever, chills, or sweats. EYES: Denies visual changes, redness, or discharge. ENT: Denies rhinorrhea, congestion, sore throat, or otalgia. CARDIOVASCULAR: Denies chest pain, palpitations, or edema. RESPIRATORY: Denies cough or dyspnea. GASTROINTESTINAL: Denies abdominal pain, nausea, vomiting, or diarrhea. GENITOURINARY: Denies dysuria or hematuria. SKIN: Denies rash or itching. Positive for wasp sting and swelling MUSCULOSKELETAL: Denies back pain, joint pain, or myalgia. NEUROLOGIC: Denies headache, numbness, or weakness. PSYCHIATRIC: Denies anxiety or depression. All other systems reviewed are negative, except as documented in HPI. PMFSH Past Medical History Medical History Healthy female adult Comments At the time of my signature, I reviewed and agree with the nursing past medical, surgical, social, and family history. There is no relevant family history pertinent to the patient complaint. Exam Narrative: GENERAL: This is a well-nourished, well-developed adult, in no apparent distress. They are non ill-appearing, nontoxic appearing. HEAD: normocephalic, atraumatic. No swelling. EYES: Sclera clear/white. Conjunctiva normal. Vision is grossly intact. Extraocular movements intact EARS: External ears normal, Hearing grossly intact. NOSE: External nose normal THROAT: Mucous membranes moist, NECK: Neck supple, non-tender without lymphadenopathy, masses or thyromegaly. CARDIOVASCULAR: Regular rate and rhythm RESPIRATORY: Respiratory rate normal, respiratory effort nonlabored, no respiratory distress SKIN: Right elbow: Posterior surface of elbow is erythematous extending into the distal posterior humerus and proximal posterior forearm. It is nontender to palpate. No induration or area of fluctuance. NEURO: awake, alert, and oriented to person, place and time. There were no obvious focal neurologic abnormalities. EXTREMITIES: No joint tenderness, effusion, or edema noted. Course Course Emergency Course: Portions of this record may have been created with voice recognition software Level of Care: Express Care Visit Vital Signs Vital signs: Vital Signs Temperature 97.3 F L 02/05/25 18:00 Pulse Rate 88 02/05/25 18:00 Respiratory Rate 18 02/05/25 18:00 Blood Pressure 121/76 02/05/25 18:00 Pulse Oximetry 99 02/05/25 18:00 Oxygen Delivery Room Air 02/05/25 18:00 Temperature 97.3 F L 02/05/25 18:00 Pulse Rate 88 02/05/25 18:00 Respiratory Rate 18 02/05/25 18:00 Blood Pressure 121/76 02/05/25 18:00 Pulse Oximetry 99 02/05/25 18:00 Oxygen Delivery Room Air 02/05/25 18:00 Reviewed MDM - Skin/Abscess/Foreign Bdy MDM Narrative Medical decision making narrative: Patient likely has allergic reaction to wasp sting. No sting is identified in skin. Will prescribe patient prednisone and have her take a daily antihistamine for the next 5 days. Discussed physical exam findings. Advised supportive measures and signs/symptoms to go to the ER. Pt is appropriate for outpt treatment and f/u. Differential Diagnosis Differential diagnosis: Likely cellulitis, eczema, insect bites, contact dermatitis and other (Allergic reaction) Critical Care Time Critical Care Time Critical Care Time: No Discharge Plan Discharge Clinical Impression: Accidental wasp sting Patient Disposition: Home Condition: Stable Instructions: Insect Bite or Sting (ED) Additional Instructions: Take the prednisone as directed. Take it in the morning and take it with food. Take Claritin or Zyrtec daily for the next 5 days. Follow the instructions on the bottle. You may use calamine lotion, camphor, hydrocortisone cream, Benadryl cream as needed for itchiness symptoms. Follow the instructions on the bottle. Follow-up PCP in 3-5 days. If you develop any worsening redness, swelling, pain, discharge, fevers, breathing problems, or any other concerns please go to the ER immediately. Patient Language: Kazakh Prescriptions: New prednisone 20 mg tablet 40 mg PO DAILY 5 Days Qty: 10 0RF Follow-up/Referrals: PHYSICIAN,[facility] [facility] [Primary Care Provider, Internal Medicine] Time of Disposition: 18:12
== END 2025-02-05 18:20 | disposition home or self-care (01) ==
DX: T63.461A Toxic effect of venom of wasps, accidental (unintentional), initial encounter (principal)
CPT/HCPCS: 99213; G0463